=== PATIENT | male | born 1955 | race Caucasian/White ===

== ENCOUNTER 2020-08-22 11:42 | Emergency (ER) | payer BC ==
[2020-08-22] MEDS ORDERED: Sodium Chloride 0.9% 10 ML Syringe FLUSH PRN (12:20)
--- NOTE | 2020-08-22 12:28 | EDM.PDOC ---
ED HPI GENERAL MEDICAL PROBLEM - General Chief Complaint: Neuro Symptoms/Deficits Stated Complaint: DIZZY/STROKE? Time Seen by Provider: 08/22/20 12:15 Source of Information: Reports: Patient, Old Records, RN History Limitations: Reports: No Limitations - History of Present Illness INITIAL COMMENTS - FREE TEXT/NARRATIVE: 64 yo male here with intermittent vertigo for a few weeks. Has not been to his doctor for this, but rather scheduled an appt with this curriculum and instruction director that is coming up this next Sunday. Today his dizziness was worse and was associated with a mild expressive aphasia so comes in via EMS. Take ASA at night. Sx's mostly gone on arrival. Vertigo was present upon awakening today. Is not aware of a relationship with turning his head and dizziness. Onset: Gradual Duration: Week(s):, Intermittent, Waxing/Waning Location: Reports: Head Quality: Reports: Other (no pain) Severity: Severe (today for the first time) Improves with: Reports: Other (? time) Worsens with: Reports: Other (unknown) Context: Reports: Other (See HPI) Associated Symptoms: Reports: Nausea/Vomiting (today), Other (mild expressive aphasia today only). Denies: Confusion Treatments COMB SETTER: Reports: Other (see below) (none) - Related Data Allergies Allergy/AdvReac Type Severity Reaction Status Date / Time clarithromycin [From Biaxin] Allergy Mouth Sores Verified 08/22/20 12:00 Home Meds: Home Meds Losartan [Cozaar] 1 tab PO DAILY 08/22/20 [History] Metoprolol Succinate [Toprol Xl] 1 tab PO DAILY 08/22/20 [History] Rosuvastatin [Crestor] 1 tab PO DAILY 08/22/20 [History] amLODIPine [Norvasc] 1 tab PO DAILY 08/22/20 [History] Social & Family History - Tobacco Use Tobacco Use Status *Q: Never Tobacco User ED ROS GENERAL - Review of Systems Review Of Systems: See Below Constitutional: Reports: No Symptoms HEENT: Reports: No Symptoms Respiratory: Reports: No Symptoms Cardiovascular: Reports: No Symptoms GI/Abdominal: Reports: Nausea, Vomiting. Denies: Black Stool, Bloody Stool, Diarrhea, Hematemesis, Hematochezia, Melena : Reports: No Symptoms Musculoskeletal: Reports: No Symptoms Skin: Reports: Diaphoresis (when sx's at their worst today) Neurological: Reports: Dizziness (during spells only), Difficulty Walking (do to dizziness), Weakness (possible mild R sided). Denies: Seizure, Syncope Psychiatric: Reports: No Symptoms ED EXAM, NEURO - Physical Exam Exam: See Below Exam Limited By: No Limitations General Appearance: Alert, WD/WN, No Apparent Distress Eye Exam: Bilateral Eye: EOMI, Normal Inspection, PERRL, Other (no nystagmus) Ears: Normal External Exam, Normal Canal, Hearing Grossly Normal, Normal TMs Nose: Normal Inspection, No Blood Throat/Mouth: Normal Inspection, Normal Lips, Normal Oropharynx, Normal Voice, No Airway Compromise Head Exam: Atraumatic, Normocephalic Neck: Normal Inspection Respiratory/Chest: No Respiratory Distress, Lungs Clear, Normal Breath Sounds, No Accessory Muscle Use Cardiovascular: Regular Rate, Rhythm, No Edema GI/Abdominal: Normal Bowel Sounds, Soft, Non-Tender, No Distention Neurological: Alert, Normal Mood/Affect, CN II-XII Intact, No Motor/Sensory Deficits, Oriented x 3 Back Exam: Normal Inspection Extremities: Normal Inspection, Normal Range of Motion, Non-Tender, No Pedal Edema Psychiatric: Normal Affect, Normal Mood Skin Exam: Warm, Dry, Intact, Normal Color, No Rash Course - Vital Signs Text/Narrative:: CT scanner [facility] [place] called @ 1325h. Dr. Holloway neurology consulted. Last Recorded V/S: Last Vital Signs Temp 36.1 C 08/22/20 13:06 Pulse 71 08/22/20 13:06 Resp 10 L 08/22/20 13:06 BP 147/88 H 08/22/20 13:06 Pulse Ox 94 L 08/22/20 13:06 - Orders/Labs/Meds Orders: Active Orders 24 hr Category Date Time Status Cardiac Monitoring [RC] .As Directed Care 08/22/20 12:20 Active Ang Head [CT] Stat Exams 08/22/20 12:22 Ordered Ang Neck [CT] Stat Exams 08/22/20 12:22 Ordered Head wo Cont [CT] Stat Exams 08/22/20 12:21 Ordered Sodium Chloride 0.9% [Saline Flush] Med 08/22/20 12:20 Active 10 ml FLUSH ASDIRECTED PRN Saline Lock Insert [OM.PC] Routine Oth 08/22/20 12:20 Ordered Medication Orders Sodium Chloride (Saline Flush) 10 ml FLUSH ASDIRECTED PRN PRN Reason: Keep Vein Open Last Admin: 08/22/20 12:37 Dose: 10 ml Documented by: DEB Labs: Laboratory Tests 08/22/20 08/22/20 Range/Units 12:29 12:29 WBC 10.1 (4.5-11.0) K/uL RBC 4.66 (4.30-5.90) M/uL Hgb 14.0 (12.0-15.0) g/dL Hct 41.5 (40.0-54.0) % MCV 89 (80-98) fL MCH 30 (27-31) pg MCHC 34 (32-36) % Plt Count 221 (150-400) K/uL Sodium 140 (140-148) mmol/L Potassium 3.6 (3.6-5.2) mmol/L Chloride 102 (100-108) mmol/L Carbon Dioxide 27 (21-32) mmol/L Anion Gap 11.4 (5.0-14.0) mmol/L BUN 13 (7-18) mg/dL Creatinine 1.0 (0.8-1.3) mg/dL Est Cr Clr Drug Dosing 80.83 mL/min Estimated GFR (MDRD) > 60 (>60) Glucose 138 H (74-106) mg/dL Calcium 8.6 (8.5-10.1) mg/dL Meds: Medications Generic Name Dose Route Start Last Admin Trade Name Freq PRN Reason Stop Dose Admin Sodium Chloride 10 ml 08/22/20 12:20 08/22/20 12:37 Saline Flush FLUSH 10 ml ASDIRECTED PRN Administration Keep Vein Open Discontinued Medications Generic Name Dose Route Start Last Admin Trade Name Freq PRN Reason Stop Dose Admin Aspirin 324 mg 08/22/20 12:34 08/22/20 12:37 Aspirin PO 08/22/20 12:35 324 mg ONETIME ONE Administration Aspirin Confirm 08/22/20 12:36 Aspirin Administered 08/22/20 12:37 Dose 324 [address] - Radiology Interpretation Free Text/Narrative:: CT head without contrast- Angio head and neck- - Re-Assessments/Exams Free Text/Narrative Re-Assessment/Exam: 08/22/20 12:33 Mild expressive aphasia returned while in the ER. Departure - Departure Time of Disposition: 13:50 Disposition: DC/Tfer to Acute Hospital 02 Condition: Serious Clinical Impression: TIA (transient ischemic attack) - Discharge Information *PRESCRIPTION DRUG MONITORING PROGRAM REVIEWED*: Not Applicable *COPY OF PRESCRIPTION DRUG MONITORING REPORT IN PATIENT [place]: Not Applicable Referrals: PCP,None [Primary Care Provider] - Forms: ED Department Discharge Sepsis Event Note (ED) - Focused Exam Vital Signs: Vital Signs Temp Pulse Resp BP Pulse Ox 08/22/20 13:06 36.1 C 71 10 L 147/88 H 94 L 08/22/20 12:55 71 10 L 147/88 H 94 L - My Orders Last 24 Hours: My Active Orders 08/22/20 12:20 Cardiac Monitoring [RC] .As Directed Sodium Chloride 0.9% [Saline Flush] 10 ml FLUSH ASDIRECTED PRN Saline Lock Insert [OM.PC] Routine 08/22/20 12:21 Head wo Cont [CT] Stat 08/22/20 12:22 Ang Head [CT] Stat Ang Neck [CT] Stat - Assessment/Plan Last 24 Hours: My Active Orders 08/22/20 12:20 Cardiac Monitoring [RC] .As Directed Sodium Chloride 0.9% [Saline Flush] 10 ml FLUSH ASDIRECTED PRN Saline Lock Insert [OM.PC] Routine 08/22/20 12:21 Head wo Cont [CT] Stat 08/22/20 12:22 Ang Head [CT] Stat Ang Neck [CT] Stat
[2020-08-22] MEDS ORDERED: Aspirin 81 MG Tab.Chew PO ONE (12:34)
[2020-08-22] MEDS ORDERED: Aspirin 81 MG Tab.Chew ONE (12:36)
== END 2020-08-22 14:30 ==
LOC: JP.ED 11:42
DX: G45.9 Transient cerebral ischemic attack, unspecified (principal); Z88.1 Allergy status to other antibiotic agents
CPT/HCPCS: 36415; 80048; 85027; 99285; A9270